=== PATIENT | female | born 1980 | race Caucasian/White ===

== ENCOUNTER 2021-08-04 08:32 | Emergency (ER) | payer OTHER ==
[2021-08-04 09:29] LABS: BASOPHIL 0.2 % (0-2); EOSINOPHIL 1.2 % (0-5); HCT 38.6 % (37.0-47.0); LYMPHOCYTE 32.1 % (15-48); MCH 34.9 pg (25.0-31.0); MCHC 33.7 g/dL (32.0-36.0); MCV 103.5 fL (78.0-100.0); MONOCYTE 5.6 % (0-12); MPV 9.2 fL (6.0-9.5); NEUTROPHIL 60.6 % (41-80); NRBC 0; PLT 300 K/uL (150-400); RBC 3.73 M/uL (4.20-5.40); RDW 12.6 % (11.5-14.0)
[2021-08-04 09:56] LABS: BUN/CREAT RATIO (CALC) 12.9 RATIO; CREATININE 0.7 mg/dL (0.51-0.95); POTASSIUM 3.3 mmol/L (3.5-5.1)
== END 2021-08-04 11:18 | disposition home or self-care (01) ==
LOC: FER 08:32
PROVIDERS: Emergency Medicine
DX: R07.89 Other chest pain (principal); F41.1 Generalized anxiety disorder; F17.210 Nicotine dependence, cigarettes, uncomplicated; Z28.310 Unvaccinated for COVID-19
CPT/HCPCS: 36415; 71046; 80048; 82553; 84484; 85025; 93005